=== PATIENT | male | born 1980 | race Caucasian/White ===

== ENCOUNTER 2023-08-18 06:15 | Inpatient (IN) ==
[2023-08-18] MEDS ORDERED: IOPAMIDOL 100 ML BOTTLE IV ONE (06:16)
[2023-08-18] MEDS ORDERED: LORazepam 2 MG/ML VIAL IV ONE ×2 (06:21→08:02)
[2023-08-18 06:33] LABS: POC Calcium, Ionized 0.99 (1.16-1.32); POC Creatinine 1.2 (0.6-1.2); POC Potassium 4.3 (3.3-5.1)
[2023-08-18] MEDS ORDERED: POTASSIUM CHLORIDE 20 MEQ, MAGNESIUM SULFATE 16.24 MEQ, THIAMINE 100 MG, MVI, ADULT NO.... IV SCH (07:00)
[2023-08-18 07:44] LABS: Basophils # (Auto) 0.07 K/mcL (0.00-0.30); Basophils % (Auto) 0.6 % (0.0-2.0); Eosinophils # (Auto) 0.05 K/mcL (0.00-0.70); Eosinophils % (Auto) 0.4 % (0.0-7.0); Hematocrit 31.1 % (40.1-51.0); Hemoglobin 10.3 g/dL (13.7-17.5); Lymphocytes # (Auto) 0.97 K/mcL (1.50-4.80); Lymphocytes % (Auto) 8.3 % (15.5-49.0); Mean Corpuscular HGB Conc 33.1 g/dL (31.0-36.0); Mean Platelet Volume 10.3 fL (8.8-12.5); Monocytes # (Auto) 0.82 K/mcL (0.10-0.90); Neutrophils % (Auto) 81.7 % (38.0-78.0); Platelet Count 241 K/mcL (140-440); RBC 3.05 M/mcL (4.63-6.08); Red Cell Distribution Width 15.9 % (11.5-14.5); WBC 11.8 K/mcL (4.5-11.0)
[2023-08-18 08:18] LABS: ALT/SGPT 60 U/L (<40); AST/SGOT 187 U/L (<40); Albumin 3.8 gm/dL (3.2-5.2); Albumin/Globulin Ratio 0.9 (1.0-2.3); Alkaline Phosphatase 274 U/L (39-117); Blood Urea Nitrogen 5 mg/dL (6-20); Calcium 8.8 mg/dL (8.6-10.4); Carbon Dioxide 23 mmol/L (22-30); Chloride 78 mmol/L (96-108); Glomerular Filtration Rate 108; Glucose 181 mg/dL (70-105)
[2023-08-18] MEDS ORDERED: ONDANSETRON 4 MG/2 ML VIAL IV ONE (09:43)
[2023-08-18] MEDS ORDERED: cefTRIAXone 2 GM in DEXTROSE 5% IN WATER 50 ML IV ONE (09:53)
[2023-08-18] MEDS ORDERED: cefTRIAXone 2 GM VIAL ONE (09:57)
[2023-08-18 10:25] LABS: POC INR 1.1 (0.8-1.2); POC Pro Time 13.5 (11.9-14.5)
[2023-08-18 11:56] LABS: Amphetamine Screen,Urine None detected; Barbiturate Screen,Urine None detected; Benzodiazepines Screen,Urine None detected; Cannabinoid Screen,Urine None detected; Cocaine Screen,Urine None detected; Opiate Screen,Urine None detected; Oxycodone, Urine Screen None detected; Phencyclidine Screen,Urine None detected
[2023-08-18 12:18] LABS: INR 1.1 (0.9-1.1); Prothrombin Time 14.9 sec (11.9-14.5)
[2023-08-18] MEDS ORDERED: DOCUSATE SODIUM 100 MG CAPSULE PO PRN (12:18)
[2023-08-18] MEDS ORDERED: FUROSEMIDE 20 MG/2 ML VIAL IV ONE (12:18)
[2023-08-18] MEDS ORDERED: SENNOSIDES 1 TABLET PO PRN (12:18)
[2023-08-18] MEDS ORDERED: LACTULOSE 20 GM/30 ML ORAL.SOL PO PRN (12:18)
[2023-08-18] MEDS: LORazepam 2 MG/ML VIAL IV PRN ×5 (12:41→21:08)
[2023-08-18] MEDS: ONDANSETRON 4 MG/2 ML VIAL IV PRN ×2 (12:42→21:08)
[2023-08-18] MEDS: 0.9 % SODIUM CHLORIDE 10 ML SYRINGE IV SCH ×2 (12:42→20:25)
[2023-08-18] MEDS ORDERED: 0.9 % SODIUM CHLORIDE 10 ML SYRINGE IV SCH (14:00)
[2023-08-18] MEDS ORDERED: ACETAMINOPHEN 500 MG TABLET PO PRN (14:30)
[2023-08-18] MEDS ORDERED: DIAZEPAM 5 MG TABLET PO SCH ×3 (15:00→21:00)
[2023-08-18] MEDS ORDERED: DIAZEPAM 5 MG TABLET PO ONE (15:37)
[2023-08-18] MEDS ORDERED: PHENobarbital SOD 130 MG/ML VIAL IV ONE (15:44)
[2023-08-18] MEDS: METOCLOPRAMIDE 10 MG/2 ML VIAL IV PRN (15:55)
[2023-08-18] MEDS ORDERED: FUROSEMIDE 40 MG/4 ML VIAL IV SCH (16:10)
[2023-08-18 16:52] LABS: Appearance,Urine CLEAR (Clear); Bilirubin,Urine Negative (Negative); Color,Urine Yellow; Culture Indicated,Urine No; Glucose,Urine (UA) Negative (Negative); Ketones,Urine 5 mg/dL (Negative); Leukocyte Esterase,Urine Negative /uL (Negative); Nitrate,Urine Negative (Negative); Protein,Urine Negative (Negative); Specific Gravity,Urine 1.025 (1.000-1.035); Urine Blood Negative (Negative)
[2023-08-18 16:59] LABS: Creatinine, Spot Urine 125.7 mg/dL (39.0-259.0); Pro:Crea Ratio 0.13 (<0.20)
[2023-08-18] MEDS: LIDOCAINE 2% URO-JET 10 ML JEL.PF.APP UR ONE ×2 (17:03→17:13)
[2023-08-18 18:21] LABS: Osmolality,Urine 469 mOSM/kg (80-1000)
[2023-08-18 19:02] LABS: Sodium, Urine Random < 10 mmol/L
[2023-08-18 19:03] LABS: Blood Urea Nitrogen 6 mg/dL (6-20); Calcium 8.4 mg/dL (8.6-10.4); Carbon Dioxide 22 mmol/L (22-30); Chloride 82 mmol/L (96-108); Glomerular Filtration Rate 114; Glucose 108 mg/dL (70-105)
[2023-08-18] MEDS ORDERED: SODIUM CHLORIDE 3 % 100 ML IV ONE (19:07)
[2023-08-18] MEDS: BUPRENORPHINE/NALOXONE 4MG/1MG ORAL FILM SL SCH (21:07)
[2023-08-19] MEDS: LORazepam 2 MG/ML VIAL IV PRN ×5 (00:20→11:13)
[2023-08-19] MEDS: ONDANSETRON 4 MG/2 ML VIAL IV PRN (00:20)
[2023-08-19 03:11] LABS: Blood Urea Nitrogen 8 mg/dL (6-20); Calcium 8.5 mg/dL (8.6-10.4); Carbon Dioxide 25 mmol/L (22-30); Chloride 84 mmol/L (96-108); Glomerular Filtration Rate 108; Glucose 136 mg/dL (70-105)
[2023-08-19] MEDS: METOCLOPRAMIDE 10 MG/2 ML VIAL IV PRN (03:36)
[2023-08-19] MEDS: 0.9 % SODIUM CHLORIDE 10 ML SYRINGE IV SCH ×4 (05:46→23:37)
[2023-08-19 07:29] LABS: Basophils # (Auto) 0.08 K/mcL (0.00-0.30); Basophils % (Auto) 0.7 % (0.0-2.0); Eosinophils # (Auto) 0.14 K/mcL (0.00-0.70); Eosinophils % (Auto) 1.2 % (0.0-7.0); Hematocrit 30.4 % (40.1-51.0); Hemoglobin 9.9 g/dL (13.7-17.5); Lymphocytes # (Auto) 0.89 K/mcL (1.50-4.80); Lymphocytes % (Auto) 7.4 % (15.5-49.0); Mean Cell Volume 106.7 fL (80.0-100.0); Mean Corpuscular HGB Conc 32.6 g/dL (31.0-36.0); Mean Platelet Volume 9.8 fL (8.8-12.5); Monocytes # (Auto) 0.83 K/mcL (0.10-0.90); Monocytes % (Auto) 6.9 % (1.0-12.0); Neutrophils % (Auto) 82.7 % (38.0-78.0); Platelet Count 233 K/mcL (140-440); RBC 2.85 M/mcL (4.63-6.08); Red Cell Distribution Width 16.4 % (11.5-14.5); WBC 12.1 K/mcL (4.5-11.0)
[2023-08-19 08:08] LABS: ALT/SGPT 55 U/L (<40); AST/SGOT 175 U/L (<40); Albumin 3.6 gm/dL (3.2-5.2); Albumin/Globulin Ratio 0.9 (1.0-2.3); Alkaline Phosphatase 251 U/L (39-117); Bilirubin,Direct 1.8 mg/dL (<0.3); Bilirubin,Total 2.8 mg/dL (0.1-1.0); Blood Urea Nitrogen 9 mg/dL (6-20); Calcium 8.5 mg/dL (8.6-10.4); Carbon Dioxide 23 mmol/L (22-30); Chloride 84 mmol/L (96-108); Glomerular Filtration Rate 108; Glucose 142 mg/dL (70-105); Lactate Dehydrogenase 773 U/L (135-225); Phosphorous 2.8 mg/dL (2.5-4.5); Triglycerides 160 mg/dL (<150)
[2023-08-19] MEDS ORDERED: amLODIPine 5 MG TABLET PO SCH (09:00)
[2023-08-19] MEDS ORDERED: LISINOPRIL 20 MG TABLET PO SCH (09:00)
[2023-08-19] MEDS ORDERED: DIAZEPAM 5 MG TABLET PO SCH (09:00)
[2023-08-19] MEDS: ENOXAPARIN 40 MG/0.4 ML SYRINGE SQ SCH (09:01)
[2023-08-19] MEDS: LISINOPRIL 20 MG TABLET PO SCH (09:02)
[2023-08-19] MEDS: amLODIPine 5 MG TABLET PO SCH (09:02)
[2023-08-19] MEDS: THIAMINE 100 MG in 0.9 % SODIUM CHLORIDE 50 ML IV SCH (09:02)
[2023-08-19] MEDS: BUPRENORPHINE/NALOXONE 4MG/1MG ORAL FILM SL SCH ×2 (09:02→19:15)
[2023-08-19] MEDS: FOLIC ACID 1 MG TABLET PO SCH (09:02)
[2023-08-19] MEDS: ARIPIPRAZOLE 5 MG TABLET PO SCH (09:03)
[2023-08-19] MEDS ORDERED: SODIUM CHLORIDE 3 % 100 ML IV ONE ×2 (09:15→19:45)
[2023-08-19] MEDS ORDERED: DEXMEDETOMIDINE 100 ML IV ONE ×3 (09:42→23:16)
[2023-08-19] MEDS: DEXMEDETOMIDINE 400 MCG in PREMIX 1 BAG IV PRN ×3 (09:43→22:57)
[2023-08-19] MEDS ORDERED: BUMETANIDE 1 MG/4 ML VIAL IV ONE (10:39)
[2023-08-19] MEDS ORDERED: LORazepam 2 MG/ML VIAL IV SCH (11:00)
[2023-08-19] MEDS: NICOTINE 21 MG PATCH TOPICAL SCH (12:18)
[2023-08-19 12:41] LABS: Hematocrit 27.7 % (40.1-51.0); Hemoglobin 8.9 g/dL (13.7-17.5)
[2023-08-19 13:08] LABS: proBNP 33.4 pg/mL (<125.0)
[2023-08-19] MEDS: AMPICILLIN SODIUM/SULBACTAM NA 3 GM in 0.9 % SODIUM CHLORIDE 100 ML IV SCH ×2 (15:04→21:40)
[2023-08-19] MEDS: DIAZEPAM 10 MG/2 ML SYRINGE IV PRN ×2 (15:49→19:37)
[2023-08-19] MEDS: DIAZEPAM 5 MG TABLET PO SCH ×2 (15:57→19:15)
[2023-08-19 18:57] LABS: Iron 46 ug/dL (61-157); TIBC Calculation 206 ug/dl (228-428); Transferrin % Saturation 22 % (20-50)
[2023-08-19 19:06] LABS: Haptoglobin 211 mg/dL (30-200)
[2023-08-19] MEDS: 0.9 % SODIUM CHLORIDE 250 ML IV SCH (19:44)
[2023-08-20] MEDS: DIAZEPAM 10 MG/2 ML SYRINGE IV PRN ×7 (00:41→21:23)
[2023-08-20] MEDS: AMPICILLIN SODIUM/SULBACTAM NA 3 GM in 0.9 % SODIUM CHLORIDE 100 ML IV SCH ×5 (02:37→23:50)
[2023-08-20] MEDS ORDERED: DEXMEDETOMIDINE 100 ML IV ONE ×2 (06:13→22:50)
[2023-08-20 06:35] LABS: Basophils # (Auto) 0.09 K/mcL (0.00-0.30); Basophils % (Auto) 1.1 % (0.0-2.0); Eosinophils # (Auto) 0.23 K/mcL (0.00-0.70); Eosinophils % (Auto) 2.9 % (0.0-7.0); Hematocrit 29.5 % (40.1-51.0); Hemoglobin 9.1 g/dL (13.7-17.5); Lymphocytes # (Auto) 0.79 K/mcL (1.50-4.80); Lymphocytes % (Auto) 9.9 % (15.5-49.0); Mean Cell Volume 110.9 fL (80.0-100.0); Mean Corpuscular HGB Conc 30.8 g/dL (31.0-36.0); Mean Platelet Volume 10.1 fL (8.8-12.5); Monocytes # (Auto) 0.68 K/mcL (0.10-0.90); Monocytes % (Auto) 8.5 % (1.0-12.0); Neutrophils % (Auto) 76.7 % (38.0-78.0); Platelet Count 193 K/mcL (140-440); RBC 2.66 M/mcL (4.63-6.08); Red Cell Distribution Width 16.1 % (11.5-14.5)
[2023-08-20] MEDS: 0.9 % SODIUM CHLORIDE 10 ML SYRINGE IV SCH ×5 (07:23→21:25)
[2023-08-20 07:44] LABS: ALT/SGPT 52 U/L (<40); AST/SGOT 238 U/L (<40); Albumin 3.1 gm/dL (3.2-5.2); Albumin/Globulin Ratio 0.9 (1.0-2.3); Alkaline Phosphatase 208 U/L (39-117); Bilirubin,Direct 1.9 mg/dL (<0.3); Bilirubin,Total 2.8 mg/dL (0.1-1.0); Blood Urea Nitrogen 13 mg/dL (6-20); Calcium 7.9 mg/dL (8.6-10.4); Carbon Dioxide 24 mmol/L (22-30); Chloride 88 mmol/L (96-108); Globulin 3.6 gm/dL (2.2-3.7); Glomerular Filtration Rate 73; Glucose 121 mg/dL (70-105); Lactate Dehydrogenase 706 U/L (135-225); Phosphorous 2.8 mg/dL (2.5-4.5); Triglycerides 164 mg/dL (<150); Uric Acid 7.3 mg/dL (2.5-8.0)
[2023-08-20] MEDS: DIAZEPAM 5 MG TABLET PO SCH ×3 (10:52→20:06)
[2023-08-20] MEDS: FOLIC ACID 1 MG TABLET PO SCH (10:52)
[2023-08-20] MEDS: ENOXAPARIN 40 MG/0.4 ML SYRINGE SQ SCH (10:54)
[2023-08-20] MEDS: THIAMINE 100 MG in 0.9 % SODIUM CHLORIDE 50 ML IV SCH (10:58)
[2023-08-20] MEDS: NICOTINE 21 MG PATCH TOPICAL SCH (10:58)
[2023-08-20] MEDS: BUPRENORPHINE/NALOXONE 4MG/1MG ORAL FILM SL SCH ×2 (11:02→21:40)
[2023-08-20] MEDS: LISINOPRIL 20 MG TABLET PO SCH (11:04)
[2023-08-20] MEDS: amLODIPine 5 MG TABLET PO SCH (11:04)
[2023-08-20] MEDS: 0.9 % SODIUM CHLORIDE 250 ML IV SCH ×2 (11:05→21:38)
[2023-08-20] MEDS: ARIPIPRAZOLE 5 MG TABLET PO SCH ×2 (11:09→11:11)
[2023-08-20] MEDS: ONDANSETRON 4 MG/2 ML VIAL IV PRN ×2 (12:03→18:13)
[2023-08-20] MEDS ORDERED: FUROSEMIDE 20 MG/2 ML VIAL IV ONE ×2 (12:47→21:00)
[2023-08-20] MEDS: DEXMEDETOMIDINE 400 MCG in PREMIX 1 BAG IV PRN (14:22)
[2023-08-20] MEDS ORDERED: ACETAMINOPHEN 325 MG TABLET PO PRN (19:44)
[2023-08-20] MEDS: oxyCODONE IR 5 MG TABLET PO PRN (20:06)
[2023-08-21] MEDS: DEXMEDETOMIDINE 400 MCG in PREMIX 1 BAG IV PRN ×2 (00:17→10:14)
[2023-08-21] MEDS: 0.9 % SODIUM CHLORIDE 10 ML SYRINGE IV SCH ×5 (00:56→21:26)
[2023-08-21] MEDS: oxyCODONE IR 5 MG TABLET PO PRN ×4 (01:30→21:28)
[2023-08-21] MEDS: AMPICILLIN SODIUM/SULBACTAM NA 3 GM in 0.9 % SODIUM CHLORIDE 100 ML IV SCH ×4 (05:29→23:19)
[2023-08-21 06:48] LABS: Basophils # (Auto) 0.09 K/mcL (0.00-0.30); Basophils % (Auto) 1.2 % (0.0-2.0); Eosinophils # (Auto) 0.29 K/mcL (0.00-0.70); Eosinophils % (Auto) 3.8 % (0.0-7.0); Hematocrit 31.9 % (40.1-51.0); Hemoglobin 9.7 g/dL (13.7-17.5); Lymphocytes # (Auto) 1.07 K/mcL (1.50-4.80); Mean Cell Volume 114.3 fL (80.0-100.0); Mean Corpuscular HGB Conc 30.4 g/dL (31.0-36.0); Mean Platelet Volume 9.6 fL (8.8-12.5); Monocytes # (Auto) 0.82 K/mcL (0.10-0.90); Monocytes % (Auto) 10.7 % (1.0-12.0); Neutrophils % (Auto) 69.3 % (38.0-78.0); Platelet Count 211 K/mcL (140-440); RBC 2.79 M/mcL (4.63-6.08); Red Cell Distribution Width 16.9 % (11.5-14.5); WBC 7.6 K/mcL (4.5-11.0)
[2023-08-21 07:16] LABS: ALT/SGPT 52 U/L (<40); AST/SGOT 209 U/L (<40); Albumin 2.8 gm/dL (3.2-5.2); Albumin/Globulin Ratio 0.7 (1.0-2.3); Alkaline Phosphatase 243 U/L (39-117); Bilirubin,Total 2.9 mg/dL (0.1-1.0); Blood Urea Nitrogen 15 mg/dL (6-20); Calcium 8.1 mg/dL (8.6-10.4); Carbon Dioxide 22 mmol/L (22-30); Chloride 89 mmol/L (96-108); Globulin 3.9 gm/dL (2.2-3.7); Glomerular Filtration Rate 81; Glucose 110 mg/dL (70-105); Lactate Dehydrogenase 682 U/L (135-225); Phosphorous 2.6 mg/dL (2.5-4.5); Triglycerides 150 mg/dL (<150); Uric Acid 6.9 mg/dL (2.5-8.0)
[2023-08-21 07:46] LABS: INR 1.4 (0.9-1.1); Prothrombin Time 17.3 sec (11.9-14.5)
[2023-08-21] MEDS ORDERED: THIAMINE 100 MG/ML VIAL ONE (08:04)
[2023-08-21] MEDS: ENOXAPARIN 40 MG/0.4 ML SYRINGE SQ SCH (08:29)
[2023-08-21] MEDS: BUPRENORPHINE/NALOXONE 4MG/1MG ORAL FILM SL SCH ×2 (08:29→12:33)
[2023-08-21] MEDS: FOLIC ACID 1 MG TABLET PO SCH (08:29)
[2023-08-21] MEDS: ARIPIPRAZOLE 5 MG TABLET PO SCH (08:30)
[2023-08-21] MEDS: DIAZEPAM 5 MG TABLET PO PRN ×2 (08:40→19:21)
[2023-08-21] MEDS: 0.9 % SODIUM CHLORIDE 250 ML IV SCH ×2 (08:54→21:16)
[2023-08-21] MEDS: THIAMINE 100 MG in 0.9 % SODIUM CHLORIDE 50 ML IV SCH (08:55)
[2023-08-21] MEDS ORDERED: DIAZEPAM 5 MG TABLET PO SCH (09:00)
[2023-08-21] MEDS ORDERED: LISINOPRIL 5 MG TABLET PO SCH (09:00)
[2023-08-21] MEDS ORDERED: DEXMEDETOMIDINE 100 ML IV ONE (10:13)
[2023-08-21] MEDS: amLODIPine 5 MG TABLET PO SCH (10:22)
[2023-08-21] MEDS: NICOTINE 21 MG PATCH TOPICAL SCH (10:30)
[2023-08-21] MEDS: FUROSEMIDE 20 MG/2 ML VIAL IV SCH ×3 (10:35→21:25)
[2023-08-21] MEDS: ONDANSETRON 4 MG/2 ML VIAL IV PRN ×2 (15:53→22:54)
[2023-08-21] MEDS ORDERED: NICOTINE 14 MG PATCH TOPICAL ONE (16:16)
[2023-08-21] MEDS: NALOXONE SL SCH (21:25)
[2023-08-21] MEDS: BUPRENORPHINE SL SCH (21:25)
[2023-08-21] MEDS: DIAZEPAM 10 MG/2 ML SYRINGE IV PRN (23:17)
[2023-08-22] MEDS: oxyCODONE IR 5 MG TABLET PO PRN ×3 (03:49→19:32)
[2023-08-22] MEDS: DIAZEPAM 10 MG/2 ML SYRINGE IV PRN ×4 (05:09→19:37)
[2023-08-22] MEDS: AMPICILLIN SODIUM/SULBACTAM NA 3 GM in 0.9 % SODIUM CHLORIDE 100 ML IV SCH ×3 (05:12→18:01)
[2023-08-22] MEDS: 0.9 % SODIUM CHLORIDE 10 ML SYRINGE IV SCH ×2 (05:12→13:43)
[2023-08-22 07:02] LABS: Basophils # (Auto) 0.09 K/mcL (0.00-0.30); Basophils % (Auto) 1.1 % (0.0-2.0); Eosinophils # (Auto) 0.28 K/mcL (0.00-0.70); Eosinophils % (Auto) 3.4 % (0.0-7.0); Hematocrit 30.3 % (40.1-51.0); Hemoglobin 9.8 g/dL (13.7-17.5); Lymphocytes # (Auto) 1.11 K/mcL (1.50-4.80); Lymphocytes % (Auto) 13.4 % (15.5-49.0); Mean Cell Volume 108.6 fL (80.0-100.0); Mean Corpuscular HGB Conc 32.3 g/dL (31.0-36.0); Mean Platelet Volume 9.8 fL (8.8-12.5); Monocytes # (Auto) 0.99 K/mcL (0.10-0.90); Monocytes % (Auto) 11.9 % (1.0-12.0); Neutrophils % (Auto) 68.8 % (38.0-78.0); Platelet Count 233 K/mcL (140-440); RBC 2.79 M/mcL (4.63-6.08); Red Cell Distribution Width 17.5 % (11.5-14.5); WBC 8.3 K/mcL (4.5-11.0)
[2023-08-22 07:20] LABS: INR 1.4 (0.9-1.1); Prothrombin Time 17.7 sec (11.9-14.5)
[2023-08-22 08:09] LABS: ALT/SGPT 49 U/L (<40); AST/SGOT 182 U/L (<40); Albumin/Globulin Ratio 0.8 (1.0-2.3); Alkaline Phosphatase 286 U/L (39-117); Bilirubin,Direct 2.2 mg/dL (<0.3); Bilirubin,Total 3.1 mg/dL (0.1-1.0); Blood Urea Nitrogen 14 mg/dL (6-20); Calcium 8.1 mg/dL (8.6-10.4); Carbon Dioxide 25 mmol/L (22-30); Chloride 92 mmol/L (96-108); Globulin 3.7 gm/dL (2.2-3.7); Glomerular Filtration Rate 91; Glucose 105 mg/dL (70-105); Lactate Dehydrogenase 801 U/L (135-225); Phosphorous 3.6 mg/dL (2.5-4.5); Triglycerides 149 mg/dL (<150); Uric Acid 5.6 mg/dL (2.5-8.0)
[2023-08-22] MEDS: LACTULOSE 20 GM/30 ML ORAL.SOL PO SCH ×7 (08:17→22:26)
[2023-08-22] MEDS: FOLIC ACID 1 MG TABLET PO SCH (08:18)
[2023-08-22] MEDS: THIAMINE 100 MG in 0.9 % SODIUM CHLORIDE 50 ML IV SCH (08:18)
[2023-08-22] MEDS: ENOXAPARIN 40 MG/0.4 ML SYRINGE SQ SCH (08:18)
[2023-08-22] MEDS: NICOTINE 21 MG PATCH TOPICAL SCH (08:18)
[2023-08-22] MEDS: DIAZEPAM 5 MG TABLET PO PRN (08:32)
[2023-08-22] MEDS: FUROSEMIDE 40 MG/4 ML VIAL IV SCH ×3 (08:32→22:35)
[2023-08-22] MEDS: NALOXONE SL SCH ×2 (08:35→22:16)
[2023-08-22] MEDS: BUPRENORPHINE SL SCH ×2 (08:35→22:16)
[2023-08-22] MEDS: METOCLOPRAMIDE 10 MG/2 ML VIAL IV PRN (08:56)
[2023-08-22] MEDS: 0.9 % SODIUM CHLORIDE 250 ML IV SCH (10:09)
[2023-08-22 10:24] LABS: Hepatitis C Virus Antibody Non-Reactive (Non-Reactive)
[2023-08-22] MEDS: ONDANSETRON 4 MG/2 ML VIAL IV PRN ×2 (11:56→19:32)
[2023-08-22] MEDS: KETOROLAC 30 MG/ML VIAL IV PRN ×2 (15:54→22:22)
[2023-08-22] MEDS: SODIUM CHLORIDE 1 GM TABLET PO SCH ×2 (16:05→22:18)
[2023-08-22] MEDS ORDERED: SIMETHICONE 80 MG TAB.CHEW CHEWED PRN (21:38)
[2023-08-22] MEDS: CALCIUM CARBONATE 500 MG TAB.CHEW PO SCH (22:21)
[2023-08-23] MEDS: 0.9 % SODIUM CHLORIDE 250 ML IV SCH ×2 (00:26→11:22)
[2023-08-23] MEDS: 0.9 % SODIUM CHLORIDE 10 ML SYRINGE IV SCH ×4 (00:27→21:35)
[2023-08-23] MEDS: AMPICILLIN SODIUM/SULBACTAM NA 3 GM in 0.9 % SODIUM CHLORIDE 100 ML IV SCH ×2 (01:03→05:26)
[2023-08-23] MEDS: oxyCODONE IR 5 MG TABLET PO PRN (01:47)
[2023-08-23] MEDS: KETOROLAC 30 MG/ML VIAL IV PRN ×2 (05:25→14:24)
[2023-08-23] MEDS: FUROSEMIDE 40 MG/4 ML VIAL IV SCH (05:26)
[2023-08-23 07:30] LABS: Basophils # (Auto) 0.09 K/mcL (0.00-0.30); Basophils % (Auto) 1.2 % (0.0-2.0); Eosinophils # (Auto) 0.28 K/mcL (0.00-0.70); Eosinophils % (Auto) 3.7 % (0.0-7.0); Hematocrit 30.8 % (40.1-51.0); Hemoglobin 9.5 g/dL (13.7-17.5); Lymphocytes # (Auto) 1.04 K/mcL (1.50-4.80); Lymphocytes % (Auto) 13.9 % (15.5-49.0); Mean Cell Volume 109.2 fL (80.0-100.0); Mean Corpuscular HGB Conc 30.8 g/dL (31.0-36.0); Mean Platelet Volume 9.9 fL (8.8-12.5); Monocytes # (Auto) 1.02 K/mcL (0.10-0.90); Monocytes % (Auto) 13.6 % (1.0-12.0); Neutrophils % (Auto) 66.4 % (38.0-78.0); Platelet Count 235 K/mcL (140-440); RBC 2.82 M/mcL (4.63-6.08); Red Cell Distribution Width 18.1 % (11.5-14.5); WBC 7.5 K/mcL (4.5-11.0)
[2023-08-23 07:42] LABS: ALT/SGPT 46 U/L (<40); AST/SGOT 138 U/L (<40); Albumin 2.8 gm/dL (3.2-5.2); Albumin/Globulin Ratio 0.7 (1.0-2.3); Alkaline Phosphatase 297 U/L (39-117); Blood Urea Nitrogen 15 mg/dL (6-20); Calcium 8.7 mg/dL (8.6-10.4); Carbon Dioxide 27 mmol/L (22-30); Chloride 93 mmol/L (96-108); Glomerular Filtration Rate 73; Glucose 107 mg/dL (70-105)
[2023-08-23] MEDS ORDERED: THIAMINE 100 MG/ML VIAL ONE (08:54)
[2023-08-23] MEDS: SODIUM CHLORIDE 1 GM TABLET PO SCH ×3 (08:57→21:35)
[2023-08-23] MEDS: CALCIUM CARBONATE 500 MG TAB.CHEW PO SCH ×2 (08:57→21:35)
[2023-08-23] MEDS: VITAMIN D3 125 MCG TABLET PO SCH (08:57)
[2023-08-23] MEDS: FOLIC ACID 1 MG TABLET PO SCH (08:57)
[2023-08-23] MEDS: ENOXAPARIN 40 MG/0.4 ML SYRINGE SQ SCH (08:57)
[2023-08-23] MEDS: BUPRENORPHINE SL SCH ×2 (08:57→21:36)
[2023-08-23] MEDS: NALOXONE SL SCH ×2 (08:57→21:36)
[2023-08-23] MEDS: LACTULOSE 20 GM/30 ML ORAL.SOL PO SCH ×4 (08:58→21:36)
[2023-08-23] MEDS: THIAMINE 100 MG in 0.9 % SODIUM CHLORIDE 50 ML IV SCH (08:58)
[2023-08-23] MEDS: ONDANSETRON 4 MG/2 ML VIAL IV PRN (09:12)
[2023-08-23] MEDS: NICOTINE 21 MG PATCH TOPICAL SCH (10:27)
[2023-08-23] MEDS: DIAZEPAM 10 MG/2 ML SYRINGE IV PRN ×2 (14:24→21:34)
[2023-08-23] MEDS: NICOTINE POLACRILEX 2 MG GUM CHEW/PARK PRN ×2 (17:31→21:29)
[2023-08-24] MEDS: 0.9 % SODIUM CHLORIDE 250 ML IV SCH (01:43)
[2023-08-24] MEDS: 0.9 % SODIUM CHLORIDE 10 ML SYRINGE IV SCH (05:58)
[2023-08-24 06:39] LABS: Basophils # (Auto) 0.09 K/mcL (0.00-0.30); Basophils % (Auto) 1.2 % (0.0-2.0); Eosinophils % (Auto) 3.9 % (0.0-7.0); Hematocrit 31.2 % (40.1-51.0); Hemoglobin 9.9 g/dL (13.7-17.5); Lymphocytes # (Auto) 1.27 K/mcL (1.50-4.80); Lymphocytes % (Auto) 16.5 % (15.5-49.0); Mean Corpuscular HGB Conc 31.7 g/dL (31.0-36.0); Mean Platelet Volume 9.9 fL (8.8-12.5); Monocytes # (Auto) 0.97 K/mcL (0.10-0.90); Monocytes % (Auto) 12.6 % (1.0-12.0); Neutrophils % (Auto) 64.4 % (38.0-78.0); Platelet Count 247 K/mcL (140-440); RBC 2.89 M/mcL (4.63-6.08); Red Cell Distribution Width 18.1 % (11.5-14.5); WBC 7.7 K/mcL (4.5-11.0)
[2023-08-24 07:02] LABS: ALT/SGPT 43 U/L (<40); AST/SGOT 131 U/L (<40); Albumin/Globulin Ratio 0.7 (1.0-2.3); Alkaline Phosphatase 309 U/L (39-117); Bilirubin,Total 2.8 mg/dL (0.1-1.0); Blood Urea Nitrogen 16 mg/dL (6-20); Calcium 9.1 mg/dL (8.6-10.4); Carbon Dioxide 26 mmol/L (22-30); Chloride 93 mmol/L (96-108); Globulin 4.1 gm/dL (2.2-3.7); Glomerular Filtration Rate 91; Glucose 105 mg/dL (70-105)
[2023-08-24] MEDS ORDERED: PANTOPRAZOLE 40 MG PACKET PO SCH (07:30)
[2023-08-24] MEDS: NALOXONE SL SCH (08:26)
[2023-08-24] MEDS: VITAMIN D3 125 MCG TABLET PO SCH (08:26)
[2023-08-24] MEDS: FOLIC ACID 1 MG TABLET PO SCH (08:26)
[2023-08-24] MEDS: SODIUM CHLORIDE 1 GM TABLET PO SCH (08:26)
[2023-08-24] MEDS: ENOXAPARIN 40 MG/0.4 ML SYRINGE SQ SCH (08:26)
[2023-08-24] MEDS: BUPRENORPHINE SL SCH (08:26)
[2023-08-24] MEDS: CALCIUM CARBONATE 500 MG TAB.CHEW PO SCH (08:26)
[2023-08-24] MEDS: LACTULOSE 20 GM/30 ML ORAL.SOL PO SCH (08:26)
[2023-08-24] MEDS ORDERED: THIAMINE 100 MG TABLET PO SCH (09:00)
[2023-08-24] MEDS ORDERED: FUROSEMIDE 40 MG TABLET PO SCH (09:00)
[2023-08-24] MEDS: NICOTINE POLACRILEX 2 MG GUM CHEW/PARK PRN (10:00)
[2023-08-24] MEDS: NICOTINE 21 MG PATCH TOPICAL SCH (11:09)
== END 2023-08-24 11:04 | disposition home or self-care (01) | DRG 897 ==
LOC: ED 06:15 → ICU 12:12
PROVIDERS: ADMIT Internal Medicine; ATTEND Internal Medicine